=== PATIENT | female | born 1990 | race Caucasian/White ===

== ENCOUNTER 2021-10-12 14:20 | Emergency (ER) | payer BC ==
[~2021-10-12] VITALS: Ht 160 cm; Wt 122.5 kg
--- NOTE | 2021-10-12 14:37 | NUR ---
PT AMBULATED TO ER BED 1 WITH A STEADY GAIT.
[2021-10-12 14:41] VITALS: BP 158/105
--- NOTE | 2021-10-12 14:41 | NUR ---
31 Y/O FEMALE C/O COUGH, SORE THROAT, HEADACHE, DIARRHEA, AND RIGHT EAR PAIN 10/10 X2 DAYS. PT STATES SHE WAS SEEN AT URGENT CARE 2 DAYS AGO & GOT AZITHROMYCIN & MEDRAL. PT WAS SWABBED STREP, FLU, MONO SPOT HETEROPHILE AB, COVID TESTED ALL NEGATIVE 2 DAYS AGO. DENIES FEVER/CHILLS. PT STATES +N/V. DENIES PMH NKA
--- NOTE | 2021-10-12 15:01 | NUR ---
DR. NEWBY AT PT BEDSIDE FOR FURTHER EVALUATION.
[2021-10-12] MEDS ORDERED: KETOROLAC 30 MG/ML VIAL IM ONE (15:15)
--- NOTE | 2021-10-12 15:29 | NUR ---
COLLECTED STREP RAPID AND CULTURE WALKED TO LAB.
[2021-10-12 16:36] VITALS: BP 132/87
--- NOTE | 2021-10-12 16:37 | NUR ---
Patient discharged with v/s stable. Written and verbal after care instructions given FOR PHARYNGITIS AND HERPANGINA and explained. Patient verbalized understanding. Ambulatory with steady gait. All questions addressed prior to discharge. Advised to follow up with PMD.
== END 2021-10-12 16:37 | disposition home or self-care (01) ==
LOC: MED 14:20
DX: B08.5 Enteroviral vesicular pharyngitis (principal); J02.9 Acute pharyngitis, unspecified
CPT/HCPCS: 87081; 96372; 99283; J1885

== ENCOUNTER 2021-10-14 08:53 | Emergency (ER) | payer BC ==
[~2021-10-14] VITALS: Ht 160 cm; Wt 122.0 kg
[2021-10-14 09:02] VITALS: BP 139/93
--- NOTE | 2021-10-14 09:09 | NUR ---
Pt ambulated to bed 11 with steady/even gait.
--- NOTE | 2021-10-14 09:15 | NUR ---
31 y/o F BIB self from home c/o sore throat, headache, body aches, night sweats x 1 week. Patient A&Ox4, ambulatory, reports seen at Urgent Care this last week and prescribed antibiotics and steroids. Pt reports seen at [facility] on for same s/s with a negative workup / negative Strep swab. Patient reports discontinuing steroids after ED visit and completed ABX. States saline gargles without relief to symptoms. Pt denies fever, chills, nausea, vomiting, diarrhea. Reports 10/10, sore/constant, non-radiating pain. Denies other meds prior to arrival. Bed locked in lowest position, side rails x 1. PMH/Sx/Meds: Denies NKDA
--- NOTE | 2021-10-14 09:34 | NUR ---
Dr. Schrader is evaluating pt at bedside
--- NOTE | 2021-10-14 10:05 | NUR ---
MICHAEL Rutledge, throat culture and strep culture obtained and walked to lab. Handed to radha laboratory aide.
[2021-10-14] MEDS ORDERED: DEXAMETHASONE 10 MG/ML VIAL PO ONE (10:10)
[2021-10-14] MEDS ORDERED: DEXAMETHASONE 4 MG TAB PO ONE (10:30)
[2021-10-14] MEDS ORDERED: CRUSHER, PILL MC ONE (10:31)
[2021-10-14] MEDS ORDERED: PENI500T20 PO (10:50)
[2021-10-14] MEDS ORDERED: PHEN177S23 PO (10:50)
[2021-10-14] MEDS ORDERED: BENZ1LOZ98 PO (10:50)
[2021-10-14] MEDS ORDERED: PENICILLIN V POTASSIUM 250 MG TAB PO ONE (10:55)
[2021-10-14] MEDS ORDERED: LIDO100S PO (10:57)
--- NOTE | 2021-10-14 10:57 | NUR ---
DR. GALO AT BEDSIDE.
[2021-10-14 11:19] VITALS: BP 138/89
--- NOTE | 2021-10-14 11:21 | NUR ---
Patient discharged with information for pharyngitis v/s stable. Written and verbal after care instructions given. Patient alert, oriented and verbalized understanding of instructions. Ambulatory with steady gait. All questions addressed prior to discharge. ID band removed. Patient advised to follow up with PMD. Rx of benzocaine/menthol, lidocaine hcl, penicillin v potassium and phenol given. Opportunity to ask questions provided and answered. Work note handed to patient.
== END 2021-10-14 11:21 | disposition home or self-care (01) ==
LOC: MED 08:53
DX: B08.5 Enteroviral vesicular pharyngitis (principal); Z20.822 Contact with and (suspected) exposure to COVID-19; R59.0 Localized enlarged lymph nodes; Z79.899 Other long term (current) drug therapy; Z79.2 Long term (current) use of antibiotics
CPT/HCPCS: 87081; 99283; J1100